=== PATIENT | female | born 1960 | race Caucasian/White ===

== ENCOUNTER 2020-09-02 15:37 | Emergency (ER) | payer BC ==
[~2020-09-02] VITALS: Ht 165.1 cm; Wt 88.5 kg
[2020-09-02 15:39] VITALS: Ht 165.1 cm; Wt 88.5 kg
[2020-09-02 21:11] VITALS: BP 127/80
== END 2020-09-02 21:11 | disposition home or self-care (01) ==
LOC: ED 15:37
DX: R51.9 Headache, unspecified (principal); R05 Cough; J02.9 Acute pharyngitis, unspecified; Z20.828 Contact with and (suspected) exposure to other viral communicable diseases